=== PATIENT | male | born 1970 | race Caucasian/White ===

== ENCOUNTER 2016-11-16 10:53 | Emergency (ER) | payer SELFPAY ==
--- NOTE | 2016-11-23 08:11 | ER ---
ADMIT: 11/16/2016 RM/LOC: ER [facility] MR#: [id number] [address] [id number] ERASMO YESSI Stephens [address] 09[address] [place] [address] Emergency Room Report SEX: M AGE: 46 : 1970 DATE: 11/16/2016 HISTORY OF PRESENT ILLNESS: The patient is a 46-year-old, presents to emergency room with dysuria, urinary retention, and right flank pain. He says difficulty voiding. On his past medical history, he has diabetes type 2, on insulin and hypertension. He takes Lantus, NovoLog, and hypertension medications. He is not allergic to anything. He does not have a primary provider in [facility]. His vitals are within normal limits with the tenderness on his right flank. He is concerned about having a kidney stone. He says he was in [place] and did have a hospital visit there. They did labs. They told him he did not have a kidney stone, but he thinks he passed one because the pain was so intense. PHYSICAL EXAMINATION: Pretty unremarkable except for tenderness in the right flank without any trauma. CT abdomen done, swollen lymph nodes around the aorta, questionable lymphoma. The patient notified of close followup. White count normal, platelets 114. Chemistries; glucose 348, alkaline phosphatase 189, AST 87, and ALT 179. UA; glucose 1000. CLINICAL IMPRESSION: 1. Right flank pain. 2. Hyperglycemia. The patient have pretty strongly encouraged to follow up with his primary provider for further evaluation. MIKE Sutherland / Desmond Shearer MD / modl JOB #: [id number] CC: Desmond Shearer MD, Attending Physician
== END 2016-11-16 16:00 | disposition home or self-care (01) ==
LOC: ER 10:53
DX: R10.9 Unspecified abdominal pain (principal); E11.65 Type 2 diabetes mellitus with hyperglycemia; I10 Essential (primary) hypertension; Z79.4 Long term (current) use of insulin; Z79.899 Other long term (current) drug therapy

== ENCOUNTER → 2016-12-12 | Outpatient (CLI) | payer MEDICAID | END | disposition home or self-care (01) | LOC: RAD.S 11-28 16:00 | DX: R93.5 Abnormal findings on diagnostic imaging of other abdominal regions, including retroperitoneum (principal); R59.0 Localized enlarged lymph nodes ==